=== PATIENT | female | born 1980 | race African-American/Black ===

== ENCOUNTER 2017-10-05 18:09 | Day surgery (SDC) | payer OTHER ==
[2017-10-05 20:29] LABS: POC GLUCOSE 135 mg/dL (70-99)
[2017-10-05] MEDS ORDERED: VECURONIUM BOLUS 10 MG VIAL. IV (21:00)
[2017-10-05 22:12] LABS: POC GLUCOSE 143 mg/dL (70-99)
[2017-10-05 22:44] LABS: BASE EXCESS ABG -4 mmol/L (-3-3); BODY TEMP ABG 95.2 DEG; CORRECTED PCO2 ABG 33 mmHg; CORRECTED PH ABG 7.41; CORRECTED PO2 ABG 524 mmHg; HCO3 ABG 20 mmol/L (21-28); PCO2 ABG 35 mmHg (35-46); PH ABG 7.38 (7.35-7.45); PO2 ABG > 503 mmHg (85-108); SAT O2 ABG 100 % (92-99)
[2017-10-05 23:03] LABS: BASE EXCESS ABG -7 mmol/L (-3-3); BODY TEMP ABG 95.3 DEG; CORRECTED PCO2 ABG 49 mmHg; CORRECTED PH ABG 7.23; CORRECTED PO2 ABG 467 mmHg; HCO3 ABG 21 mmol/L (21-28); PCO2 ABG 53 mmHg (35-46); PH ABG 7.21 (7.35-7.45); PO2 ABG 478 mmHg (85-108); SAT O2 ABG 100 % (92-99)
[2017-10-05 23:20] LABS: BASE EXCESS ABG -7 mmol/L (-3-3); BODY TEMP ABG 95.2 DEG; CORRECTED PCO2 ABG 60 mmHg; CORRECTED PH ABG 7.18; CORRECTED PO2 ABG 482 mmHg; HCO3 ABG 22 mmol/L (21-28); PO2 ABG 494 mmHg (85-108); SAT O2 ABG 100 % (92-99)
[2017-10-05 23:21] LABS: FIO2 ABG 100
[2017-10-05 23:24] LABS: FIO2 ABG 44
[2017-10-05 23:28] LABS: FIO2 ABG 44; PCO2 ABG 66 mmHg (35-46); PH ABG 7.15 (7.35-7.45)
[2017-10-05] MEDS: IV NORMAL SALINE 1000ML BAG 1,000 ML IV (23:30)
[2017-10-06] MEDS: CALCIUM CHLORIDE IV (00:15)
[2017-10-06] MEDS: methylPREDNISolone SOD SUCC 500 MG in IV NORMAL SALINE 100ML 100 ML IV (00:15)
[2017-10-06] MEDS: DEXTROSE 5% IV (00:15)
[2017-10-06] MEDS: POTASSIUM CHLORIDE 20MEQ 50 ML IV ×2 (00:16→00:30)
[2017-10-06] MEDS: MAGNESIUM SULFATE 2GM 50 ML IV (00:16)
[2017-10-06] MEDS: POLYVINYL ALCOHOL 1.4% OPHTH SOLUTION 15ML BOTTLE. OU ×2 (00:17→05:02)
[2017-10-06] MEDS: VECURONIUM BOLUS 10 MG VIAL. IV (00:29)
[2017-10-06] MEDS: NALOXONE 0.4 MG/ML VIAL. IV (00:29)
[2017-10-06] MEDS: DESMOPRESSIN 4 MCG/ML AMPUL. IV (00:29)
[2017-10-06] MEDS: IV NORMAL SALINE 1000ML BAG 1,000 ML IV ×3 (00:30→11:02)
[2017-10-06 00:41] LABS: ADD MAN DIFF? NO
[2017-10-06 00:42] LABS: BASO # 0.1 x10^3/uL (0.0-0.2); BASO % 1 % (0-3); EOS % 0 % (0-3); HEMATOCRIT 23.7 % (36.0-47.0); HEMOGLOBIN 7.7 g/dL (12.0-15.5); LYMPH % 4 % (24-48); MEAN CORPUSCULAR HEMOGLOBIN 26 pg (25-35); MEAN CORPUSCULAR HGB CONC 33 g/dL (31-37); MEAN CORPUSCULAR VOLUME 79 fL (79-100); MONO # 0.6 x10^3/uL (0.0-1.1); MONO % 3 % (0-9); NEUT # 20.9 x10^3uL (1.8-7.7); NEUT % 92 % (31-73); PLATELET COUNT 190 x10^3/uL (140-400); RED BLOOD COUNT 2.98 x10^6/uL (3.50-5.40); WHITE BLOOD COUNT 22.6 x10^3/uL (4.0-11.0)
[2017-10-06 00:53] LABS: FIBRINOGEN 505 mg/dL (200-440); INR 1.3 (0.8-1.1); PARTIAL THROMBOPLASTIN TIME 31 SEC (24-38); PROTHROMBIN TIME PATIENT 15.2 SEC (11.7-14.0)
[2017-10-06 00:57] LABS: ALBUMIN 2.4 g/dL (3.4-5.0); ALK PHOS 55 U/L (46-116); ALT (SGPT) 27 U/L (14-59); AMYLASE 144 U/L (25-115); AST (SGOT) 58 U/L (15-37); CREATINE KINASE 247 U/L (26-192); DIRECT BILIRUBIN < 0.1 mg/dL (0.0-0.2); GAMMA GLUTAMYL TRANSPEPTIDASE 43 U/L (5-55); LACTATE DEHYDROGENASE 614 U/L (81-234); LIPASE 136 U/L (73-393); MAGNESIUM 1.8 mg/dL (1.8-2.4); PHOSPHORUS 5.9 mg/dL (2.6-4.7); TOTAL BILIRUBIN 0.4 mg/dL (0.2-1.0); TOTAL PROTEIN 6.8 g/dL (6.4-8.2)
[2017-10-06 01:16] LABS: POC GLUCOSE 133 mg/dL (70-99)
[2017-10-06 02:09] LABS: POC GLUCOSE 129 mg/dL (70-99)
[2017-10-06 03:16] LABS: CKMB MASS 2.4 ng/mL (0.0-3.6); CREATINE KINASE 246 U/L (26-192)
[2017-10-06 04:12] LABS: POC GLUCOSE 146 mg/dL (70-99)
[2017-10-06 05:17] LABS: ADD MAN DIFF? NO
[2017-10-06 05:19] LABS: BASO # 0.1 x10^3/uL (0.0-0.2); BASO % 1 % (0-3); EOS % 0 % (0-3); HEMATOCRIT 24.7 % (36.0-47.0); HEMOGLOBIN 7.9 g/dL (12.0-15.5); LYMPH # 0.7 x10^3/uL (1.0-4.8); LYMPH % 3 % (24-48); MEAN CORPUSCULAR HEMOGLOBIN 26 pg (25-35); MEAN CORPUSCULAR HGB CONC 32 g/dL (31-37); MEAN CORPUSCULAR VOLUME 80 fL (79-100); MONO # 0.4 x10^3/uL (0.0-1.1); MONO % 2 % (0-9); NEUT # 21.4 x10^3uL (1.8-7.7); NEUT % 95 % (31-73); PLATELET COUNT 143 x10^3/uL (140-400); RED BLOOD COUNT 3.11 x10^6/uL (3.50-5.40); RED CELL DISTRIBUTION WIDTH 15.7 % (11.5-14.5); WHITE BLOOD COUNT 22.5 x10^3/uL (4.0-11.0)
[2017-10-06 05:32] LABS: FIBRINOGEN 544 mg/dL (200-440); INR 1.2 (0.8-1.1); PARTIAL THROMBOPLASTIN TIME 32 SEC (24-38); PROTHROMBIN TIME PATIENT 14.7 SEC (11.7-14.0)
[2017-10-06 06:16] LABS: POC GLUCOSE 139 mg/dL (70-99)
[2017-10-06 06:30] LABS: ALBUMIN 2.5 g/dL (3.4-5.0); ALK PHOS 56 U/L (46-116); ALT (SGPT) 27 U/L (14-59); AMYLASE 132 U/L (25-115); CREATINE KINASE 177 U/L (26-192); DIRECT BILIRUBIN 0.1 mg/dL (0.0-0.2); GAMMA GLUTAMYL TRANSPEPTIDASE 46 U/L (5-55); LACTATE DEHYDROGENASE 538 U/L (81-234); LIPASE 156 U/L (73-393); MAGNESIUM 2.5 mg/dL (1.8-2.4); PHOSPHORUS 4.9 mg/dL (2.6-4.7); TOTAL BILIRUBIN 0.4 mg/dL (0.2-1.0)
[2017-10-06] MEDS: IV NORMAL SALINE 500ML BAG 500 ML IV (06:30)
[2017-10-06 06:31] LABS: AST (SGOT) 48 U/L (15-37)
[2017-10-06 09:01] LABS: POC GLUCOSE 149 mg/dL (70-99)
[2017-10-06] MEDS: DEXTROSE IV ×2 (09:42→20:57)
[2017-10-06] MEDS: NICARDIPINE HCL IV ×2 (09:42→20:57)
[2017-10-06] MEDS: NACL IV ×2 (09:42→20:57)
[2017-10-06 12:25] LABS: ADD MAN DIFF? NO
[2017-10-06 12:35] LABS: BASO % 0 % (0-3); EOS % 0 % (0-3); HEMATOCRIT 23.9 % (36.0-47.0); HEMOGLOBIN 7.7 g/dL (12.0-15.5); LYMPH # 0.9 x10^3/uL (1.0-4.8); LYMPH % 5 % (24-48); MEAN CORPUSCULAR HEMOGLOBIN 26 pg (25-35); MEAN CORPUSCULAR HGB CONC 32 g/dL (31-37); MEAN CORPUSCULAR VOLUME 80 fL (79-100); MONO # 0.5 x10^3/uL (0.0-1.1); MONO % 2 % (0-9); NEUT # 17.8 x10^3uL (1.8-7.7); NEUT % 93 % (31-73); PLATELET COUNT 138 x10^3/uL (140-400); RED CELL DISTRIBUTION WIDTH 16.1 % (11.5-14.5); WHITE BLOOD COUNT 19.2 x10^3/uL (4.0-11.0)
[2017-10-06 12:44] LABS: FIBRINOGEN 521 mg/dL (200-440); PARTIAL THROMBOPLASTIN TIME 32 SEC (24-38)
[2017-10-06 12:45] LABS: INR 1.3 (0.8-1.1); PROTHROMBIN TIME PATIENT 15.2 SEC (11.7-14.0)
[2017-10-06 13:05] LABS: ALBUMIN 2.5 g/dL (3.4-5.0); ALT (SGPT) 24 U/L (14-59); AMYLASE 124 U/L (25-115); AST (SGOT) 38 U/L (15-37); CREATINE KINASE 121 U/L (26-192); DIRECT BILIRUBIN < 0.1 mg/dL (0.0-0.2); GAMMA GLUTAMYL TRANSPEPTIDASE 45 U/L (5-55); LACTATE DEHYDROGENASE 467 U/L (81-234); LIPASE 222 U/L (73-393); MAGNESIUM 2.3 mg/dL (1.8-2.4); TOTAL BILIRUBIN 0.3 mg/dL (0.2-1.0); TOTAL PROTEIN 6.8 g/dL (6.4-8.2)
[2017-10-06 13:06] LABS: ALK PHOS 93 U/L (46-116)
[2017-10-06 15:28] LABS: HEMOGLOBIN A1C 5.2 % (4.8-5.6)
[2017-10-06 17:57] LABS: BASE EXCESS ABG -2 mmol/L (-3-3); FIO2 ABG 100; HCO3 ABG 23 mmol/L (21-28); PCO2 ABG 41 mmHg (35-46); PH ABG 7.37 (7.35-7.45); PO2 ABG 566 mmHg (85-108); SAT O2 ABG 100 % (92-99)
[2017-10-06 18:07] LABS: ADD MAN DIFF? NO
[2017-10-06 18:09] LABS: BASO % 0 % (0-3); EOS % 0 % (0-3); HEMATOCRIT 23.1 % (36.0-47.0); HEMOGLOBIN 7.5 g/dL (12.0-15.5); LYMPH # 0.6 x10^3/uL (1.0-4.8); LYMPH % 3 % (24-48); MEAN CORPUSCULAR HEMOGLOBIN 26 pg (25-35); MEAN CORPUSCULAR HGB CONC 32 g/dL (31-37); MEAN CORPUSCULAR VOLUME 80 fL (79-100); MONO # 0.6 x10^3/uL (0.0-1.1); MONO % 3 % (0-9); NEUT # 17.7 x10^3uL (1.8-7.7); NEUT % 94 % (31-73); PLATELET COUNT 134 x10^3/uL (140-400); RED CELL DISTRIBUTION WIDTH 15.9 % (11.5-14.5); WHITE BLOOD COUNT 18.9 x10^3/uL (4.0-11.0)
[2017-10-06 18:20] LABS: FIBRINOGEN 501 mg/dL (200-440); INR 1.3 (0.8-1.1); PARTIAL THROMBOPLASTIN TIME 31 SEC (24-38); PROTHROMBIN TIME PATIENT 15.5 SEC (11.7-14.0)
[2017-10-06 18:23] LABS: IONIZED CALCIUM 1.13 mmol/L (1.13-1.32)
[2017-10-06 18:27] LABS: ANION GAP 11 (6-14); BLOOD UREA NITROGEN 27 mg/dL (7-20); CALCIUM 7.8 mg/dL (8.5-10.1); CARBON DIOXIDE 24 mmol/L (21-32); CHLORIDE 113 mmol/L (98-107); CREATININE 2.1 mg/dL (0.6-1.0); GFR 32.4; GLUCOSE 176 mg/dL (70-99); POTASSIUM 4.1 mmol/L (3.5-5.1); SODIUM 148 mmol/L (136-145)
[2017-10-06 18:48] LABS: LACTIC ACID 0.6 mmol/L (0.4-2.0)
[2017-10-06 19:04] LABS: ALBUMIN 2.4 g/dL (3.4-5.0); ALK PHOS 55 U/L (46-116); ALT (SGPT) 25 U/L (14-59); AMYLASE 121 U/L (25-115); AST (SGOT) 40 U/L (15-37); CREATINE KINASE 95 U/L (26-192); DIRECT BILIRUBIN < 0.1 mg/dL (0.0-0.2); GAMMA GLUTAMYL TRANSPEPTIDASE 45 U/L (5-55); LACTATE DEHYDROGENASE 449 U/L (81-234); LIPASE 288 U/L (73-393); MAGNESIUM 2.1 mg/dL (1.8-2.4); PHOSPHORUS 3.8 mg/dL (2.6-4.7); TOTAL BILIRUBIN 0.2 mg/dL (0.2-1.0); TOTAL PROTEIN 6.7 g/dL (6.4-8.2)
[2017-10-06 20:53] LABS: POC GLUCOSE 148 mg/dL (70-99)
[2017-10-06] MEDS: VANCOMYCIN 1 GM in IV DEXTROSE 5 %-0.2 % NACL 250 ML IV (21:44)
[2017-10-06 23:16] LABS: POC GLUCOSE 176 mg/dL (70-99)
[2017-10-06] MEDS: CEFEPIME HCL 1 GM in IV NORMAL SALINE 50ML 50 ML IV (23:30)
[2017-10-07 00:09] LABS: ADD MAN DIFF? NO
[2017-10-07] MEDS: IV NORMAL SALINE 1000ML BAG 1,000 ML IV (00:11)
[2017-10-07 00:12] LABS: BASO % 0 % (0-3); EOS % 0 % (0-3); HEMATOCRIT 22.8 % (36.0-47.0); HEMOGLOBIN 7.4 g/dL (12.0-15.5); LYMPH # 0.7 x10^3/uL (1.0-4.8); LYMPH % 3 % (24-48); MEAN CORPUSCULAR HEMOGLOBIN 26 pg (25-35); MEAN CORPUSCULAR HGB CONC 32 g/dL (31-37); MEAN CORPUSCULAR VOLUME 80 fL (79-100); MONO # 0.7 x10^3/uL (0.0-1.1); MONO % 4 % (0-9); NEUT # 17.8 x10^3uL (1.8-7.7); NEUT % 93 % (31-73); PLATELET COUNT 137 x10^3/uL (140-400); RED BLOOD COUNT 2.85 x10^6/uL (3.50-5.40); WHITE BLOOD COUNT 19.1 x10^3/uL (4.0-11.0)
[2017-10-07 00:14] LABS: BASE EXCESS ABG -1 mmol/L (-3-3); HCO3 ABG 24 mmol/L (21-28); PCO2 ABG 41 mmHg (35-46); PH ABG 7.38 (7.35-7.45); PO2 ABG > 503 mmHg (85-108); SAT O2 ABG 100 % (92-99)
[2017-10-07 00:19] LABS: ANION GAP 10 (6-14); BLOOD UREA NITROGEN 26 mg/dL (7-20); CALCIUM 7.7 mg/dL (8.5-10.1); CARBON DIOXIDE 25 mmol/L (21-32); CHLORIDE 112 mmol/L (98-107); CREATININE 1.9 mg/dL (0.6-1.0); GFR 36.4; GLUCOSE 213 mg/dL (70-99); POTASSIUM 3.9 mmol/L (3.5-5.1); SODIUM 147 mmol/L (136-145)
[2017-10-07 00:20] LABS: FIO2 ABG 100
[2017-10-07 00:20] LABS: IONIZED CALCIUM 1.12 mmol/L (1.13-1.32)
[2017-10-07 00:21] LABS: FIBRINOGEN 486 mg/dL (200-440)
[2017-10-07 00:22] LABS: INR 1.2 (0.8-1.1); PARTIAL THROMBOPLASTIN TIME 34 SEC (24-38)
[2017-10-07 00:26] LABS: ALBUMIN 2.4 g/dL (3.4-5.0); ALK PHOS 50 U/L (46-116); ALT (SGPT) 25 U/L (14-59); AMYLASE 128 U/L (25-115); AST (SGOT) 40 U/L (15-37); CREATINE KINASE 80 U/L (26-192); DIRECT BILIRUBIN < 0.1 mg/dL (0.0-0.2); GAMMA GLUTAMYL TRANSPEPTIDASE 51 U/L (5-55); LACTATE DEHYDROGENASE 391 U/L (81-234); LIPASE 379 U/L (73-393); PHOSPHORUS 3.5 mg/dL (2.6-4.7); TOTAL BILIRUBIN 0.2 mg/dL (0.2-1.0); TOTAL PROTEIN 6.1 g/dL (6.4-8.2)
[2017-10-07 00:28] LABS: LACTIC ACID 0.8 mmol/L (0.4-2.0)
[2017-10-07 02:06] LABS: POC GLUCOSE 159 mg/dL (70-99)
[2017-10-07 04:06] LABS: ADD MAN DIFF? NO
[2017-10-07] MEDS: IV NORMAL SALINE 500ML BAG 500 ML IV (04:16)
[2017-10-07 04:17] LABS: BASO % 0 % (0-3); EOS % 0 % (0-3); HEMATOCRIT 23.1 % (36.0-47.0); HEMOGLOBIN 7.4 g/dL (12.0-15.5); LYMPH # 0.7 x10^3/uL (1.0-4.8); LYMPH % 4 % (24-48); MEAN CORPUSCULAR HEMOGLOBIN 26 pg (25-35); MEAN CORPUSCULAR HGB CONC 32 g/dL (31-37); MEAN CORPUSCULAR VOLUME 80 fL (79-100); MONO # 0.7 x10^3/uL (0.0-1.1); MONO % 4 % (0-9); NEUT # 16.4 x10^3uL (1.8-7.7); NEUT % 92 % (31-73); PLATELET COUNT 136 x10^3/uL (140-400); RED CELL DISTRIBUTION WIDTH 16.3 % (11.5-14.5); WHITE BLOOD COUNT 17.7 x10^3/uL (4.0-11.0)
[2017-10-07 04:21] LABS: IONIZED CALCIUM 1.12 mmol/L (1.13-1.32)
[2017-10-07 04:36] LABS: FIBRINOGEN 481 mg/dL (200-440); INR 1.2 (0.8-1.1); PARTIAL THROMBOPLASTIN TIME 29 SEC (24-38); PROTHROMBIN TIME PATIENT 15.1 SEC (11.7-14.0)
[2017-10-07 04:38] LABS: BASE EXCESS ABG 0 mmol/L (-3-3); HCO3 ABG 24 mmol/L (21-28); PCO2 ABG 39 mmHg (35-46); PH ABG 7.42 (7.35-7.45); PO2 ABG > 503 mmHg (85-108); SAT O2 ABG 100 % (92-99)
[2017-10-07 04:41] LABS: ANION GAP 7 (6-14); BLOOD UREA NITROGEN 26 mg/dL (7-20); CALCIUM 7.9 mg/dL (8.5-10.1); CARBON DIOXIDE 27 mmol/L (21-32); CHLORIDE 113 mmol/L (98-107); GFR 34.3; GLUCOSE 166 mg/dL (70-99); SODIUM 147 mmol/L (136-145)
[2017-10-07 04:43] LABS: BILIRUBIN,URINE NEGATIVE (NEG); CLARITY,URINE CLEAR; COLOR,URINE YELLOW; GLUCOSE,URINE NEGATIVE (NEG); NITRITE,URINE NEGATIVE (NEG); PH,URINE 5.5; PROTEIN,URINE NEGATIVE (NEG-TRACE); UROBILINOGEN,URINE 0.2 mg/dL (0.2 mg/dL)
[2017-10-07 04:51] LABS: LACTIC ACID 0.9 mmol/L (0.4-2.0)
[2017-10-07 04:53] LABS: FIO2 ABG 100
[2017-10-07] MEDS ORDERED: MANNITOL 25% 12.5 G/50 ML VIAL FOR OR. (04:53)
[2017-10-07] MEDS ORDERED: FUROSEMIDE 40 MG/4 ML VIAL. ×3 (04:53→06:50)
[2017-10-07] MEDS ORDERED: ALBUMIN HUMAN 5% 0 ML IV (04:54)
[2017-10-07 05:07] LABS: BACTERIA,URINE 0 /HPF (0-FEW); RBC,URINE 0 /HPF (0-2); SQUAMOUS EPITHELIAL CELL,UR FEW /LPF; WBC,URINE OCC /HPF (0-4)
[2017-10-07 05:08] LABS: AMORPHOUS SEDIMENT,UR PRESENT /HPF; HYALINE CASTS, URINE OCCASIONAL /HPF
[2017-10-07 05:10] LABS: ALBUMIN 2.4 g/dL (3.4-5.0); ALK PHOS 55 U/L (46-116); ALT (SGPT) 22 U/L (14-59); AMYLASE 145 U/L (25-115); AST (SGOT) 42 U/L (15-37); CREATINE KINASE 87 U/L (26-192); DIRECT BILIRUBIN 0.1 mg/dL (0.0-0.2); GAMMA GLUTAMYL TRANSPEPTIDASE 49 U/L (5-55); LACTATE DEHYDROGENASE 436 U/L (81-234); LIPASE 483 U/L (73-393); PHOSPHORUS 3.1 mg/dL (2.6-4.7); TOTAL BILIRUBIN 0.3 mg/dL (0.2-1.0); TOTAL PROTEIN 6.1 g/dL (6.4-8.2)
[2017-10-07] MEDS ORDERED: DESFLURANE > 120 MINUTES IH (08:29)
== END 2017-10-07 11:45 ==
LOC: SDC 18:09 → 1 WEST ICU 18:13 → SDC 10-07 11:45
DX: J45.909 Unspecified asthma, uncomplicated; Z90.710 Acquired absence of both cervix and uterus; F17.200 Nicotine dependence, unspecified, uncomplicated; I13.0 Hypertensive heart and chronic kidney disease with heart failure and stage 1 through stage 4 chronic kidney disease, or unspecified chronic kidney disease; N18.9 Chronic kidney disease, unspecified; I25.2 Old myocardial infarction; I46.9 Cardiac arrest, cause unspecified; I50.43 Acute on chronic combined systolic (congestive) and diastolic (congestive) heart failure; F12.10 Cannabis abuse, uncomplicated
CPT/HCPCS: 36415; 36600; 71045; 80048; 80076; 81001; 82150; 82310; 82550; 82553; 82805; 82962; 82977; 83036; 83605; 83615; 83690; 83735; 84100; 85025; 85384; 85610; 85730; 86850; 86900; 86901; 86920; 87040; 87070; 87086; 87205; 94003; 94640; J0692; J1940; J2150; J2310; J2597; J2930; J3370; J3475; J3480; J7030; J7040; P9045